=== PATIENT | male | born 1970 | race Caucasian/White ===

== ENCOUNTER 2017-12-03 09:34 | Inpatient (IN) | payer OTHER ==
[2017-12-03] MEDS ORDERED: ASPIRIN 81 MG PO STA (10:18)
--- NOTE | 2017-12-03 10:33 | ED ---
Chest Pain HPI - General Chief Complaint: Chest Pain Stated Complaint: CHEST PAIN Time Seen by Provider: 12/03/17 10:18 Source: patient, RN notes reviewed Mode of arrival: wheelchair Limitations: no limitations - History of Present Illness Initial Comments: This a 47-year-old male presents emergency Department with chief complaint of chest pain. He states that it started approximate one month ago while he was walking back from the store. He states that he has no chest pain at rest but states with any exertion he develops chest discomfort. Patient states that he also has some discomfort with deep inspiration. He does admit that he has a family history of heart disease and is a daily smoker at least one pack per day. Patient states she saw PCP yesterday in which they do some lab work and had chest x-ray with no acute findings. Patient states that the pain is getting worse and states that it is at minimal exertion when it starts. Patient has no history of [place], hyperlipidemia though last check was 3 years ago for labwork. - Related Data Home Medications Medication Instructions Recorded Confirmed Albuterol Inhaler [Ventolin Hfa 1 - 2 puff INHALATION RT-Q6H PRN 12/03/17 Inhaler] Fluticasone/Vilanterol [Breo 1 puff INHALATION RT-DAILY 12/03/17 12/03/17 Ellipta 100-25 Mcg Inhaler] Omeprazole [PriLOSEC] 40 mg PO DAILY 12/03/17 12/03/17 Tamsulosin HCl [Flomax] 0.4 mg PO DAILY 12/03/17 12/03/17 Allergies Allergy/AdvReac Type Severity Reaction Status Date / Time No Known Allergies Allergy Verified 12/03/17 10:13 Review of Systems ROS Statement: Those systems with pertinent positive or pertinent negative responses have been documented in the HPI. ROS Other: All systems not noted in ROS Statement are negative. EKG Findings - EKG Comments: EKG Findings:: EKG performed at 10:36 normal sinus rhythm with a rate of 68 MT 118 QRS 86 QTC is QTC 378/40 to there is an inverted T-wave noted in aVL. Please EKG performed at 12:32 normal sinus rhythm with rate of 74 MT 128 QRS 84 QT/QTC 392/435 Past Medical History Past Medical History: No Reported History History of Any Multi-Drug Resistant Organisms: None Reported Past Surgical History: Cholecystectomy Additional Past Surgical History / Comment(s): plates in left collar bone Past Psychological History: No Psychological Hx Reported Smoking Status: Current every day smoker Past Alcohol Use History: Occasional Past Drug Use History: Marijuana General Exam Limitations: no limitations General appearance: alert, in no apparent distress Head exam: Present: atraumatic, normocephalic, normal inspection Eye exam: Present: normal appearance, PERRL, EOMI. Absent: scleral icterus, conjunctival injection, periorbital swelling ENT exam: Present: normal exam, mucous membranes moist Neck exam: Present: normal inspection, full ROM. Absent: tenderness, meningismus, lymphadenopathy Respiratory exam: Present: normal lung sounds bilaterally. Absent: respiratory distress, wheezes, rales, rhonchi, stridor, chest wall tenderness Cardiovascular Exam: Present: regular rate, normal rhythm, normal heart sounds. Absent: systolic murmur, diastolic murmur, rubs, gallop, clicks Neurological exam: Present: alert, oriented X3, CN II-XII intact Skin exam: Present: warm, dry, intact, normal color. Absent: rash Course Vital Signs 12/03/17 12/03/17 12/03/17 09:46 10:57 11:30 Temperature 98.2 F Pulse Rate 91 79 72 Respiratory 20 18 161 H Rate Blood Pressure 133/92 142/92 156/91 O2 Sat by Pulse 100 100 99 Oximetry 12/03/17 12:26 Temperature Pulse Rate 66 Respiratory 16 Rate Blood Pressure 140/89 O2 Sat by Pulse 98 Oximetry Disposition Clinical Impression: Chest pain Disposition: ADMITTED IP TO THIS HOSP Condition: Stable Referrals: Keyla Costello DO [Primary Care Provider] - 1-2 days
[2017-12-03 11:10] LABS: Basophils % (A) 1 %; Eosinophils # (A) 0.1 k/uL (0-0.7); Eosinophils % (A) 2 %; HCT 40.2 % (39.0-53.0); HGB 13.5 gm/dL (13.0-17.5); Lymphocytes # (A) 2.4 k/uL (1.0-4.8); Lymphocytes % (A) 36 %; MCH 29.3 pg (25.0-35.0); MCHC 33.7 g/dL (31.0-37.0); Mean Platelet Volume 6.1; Monocytes # (A) 0.3 k/uL (0-1.0); Monocytes % (A) 4 %; Neutrophils # (A) 3.7 k/uL (1.3-7.7); Neutrophils % (A) 55 %; Platelet Count 275 k/uL (150-450); RBC 4.63 m/uL (4.30-5.90); RDW 14.2 % (11.5-15.5); WBC 6.6 k/uL (3.8-10.6)
--- NOTE | 2017-12-03 11:26 | XR ---
EXAMINATION TYPE: XR chest 2V DATE OF EXAM: 12/03/2017 COMPARISON: NONE TECHNIQUE: PA and lateral views submitted. HISTORY: Chest pain FINDINGS: The lungs are clear and there is no pneumothorax, pleural effusion, or focal pneumonia. Postsurgica l change left clavicle. Some of the screws appear to be outside of the fixation plate. Appears metall ic foreign body overlying the right shoulder. Hyperinflation suggests COPD. Lateral view suggest prob able calcified granuloma. IMPRESSION: 1. No acute process.
[2017-12-03 11:27] LABS: ALT 34 U/L (21-72); AST 29 U/L (17-59); Albumin 4.1 g/dL (3.5-5.0); Alkaline Phosphatase 112 U/L (38-126); Anion Gap 7 mmol/L; Blood Urea Nitrogen 12 mg/dL (9-20); Calcium 9.5 mg/dL (8.4-10.2); Carbon Dioxide 22 mmol/L (22-30); Chloride 111 mmol/L (98-107); Glucose 106 mg/dL (74-99); Magnesium 1.8 mg/dL (1.6-2.3); Potassium 4.3 mmol/L (3.5-5.1); Sodium 140 mmol/L (137-145); Total Bilirubin 0.3 mg/dL (0.2-1.3); Total Protein 6.6 g/dL (6.3-8.2)
[2017-12-03 11:42] LABS: Creatine Kinase 225 U/L (55-170)
[2017-12-03 11:50] LABS: D-Dimer 0.19 mg/L FEU (<0.60); Partial Thromboplastin Time 24.9 sec (22.0-30.0); Prothrombin Time 9.5 sec (9.0-12.0)
[2017-12-03 11:55] LABS: Creatine Kinase MB 1.2 ng/mL (0.0-2.4); Troponin I <0.012 ng/mL (0.000-0.034)
[2017-12-03] MEDS ORDERED: NITROGLYCERIN SL TABS 0.4 MG TAB SUBLINGUAL PRN (12:41)
[2017-12-03] MEDS ORDERED: HEPARIN SODIUM,PORCINE 5,000 UNIT/ML 1 ML VIAL IV ONE (12:41)
[2017-12-03] MEDS ORDERED: HEPARIN SOD,PORK IN 0.45% NACL 25,000 UNIT in 0.45% NACL 1 500ML.BAG IV SCH (12:45)
[2017-12-03] MEDS ORDERED: ALBUTEROL NEBULIZED 2.5 MG/3 ML INHALATION PRN (14:18)
[2017-12-03] MEDS ORDERED: NICOTINE 21MG/24HR PATCH TRANSDERM SCH (14:30)
--- NOTE | 2017-12-03 14:30 | P.HPIM ---
<Tracy Guidry - Last Filed: 12/03/17 14:22> History of Present Illness H&P Date: 12/03/17 Chief Complaint: Chest pain This is a 47-year-old male with a known history of nicotine dependence, GERD, COPD and BPH. He presents to the emergency room with complaints of chest pain. Patient reports she's been having these chest pain episodes intermittently with activity for the past month. He describes the chest pain as a burning sensation in the center of his chest. 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 He does occasionally feel lightheaded. Denies any actual nausea or vomiting with the chest pain. But in the morning he reports that he has had an upset stomach. The pain does not radiate into the arm or the neck. He denies any shortness of breath. Denies any diaphoresis. Denies any fever or chills or cough. Denies any bowel movement changes or urinary symptoms. He had been to see his PCP and they're planning to do a stress test later in December. Patient also is a smoker and he is still smoking and wearing the nicotine patch at the same time. Initial troponin was negative. EKG showing a normal sinus rhythm. Chest x-ray negative. D-dimer normal at 0.19. Patient has been admitted to the observation floor cardiology has been consulted and he has been started on IV heparin. Review of Systems Please refer to HPI otherwise unremarkable Past Medical History Past Medical History: No Reported History Additional Past Medical History / Comment(s): ADD, COPD, BPH, nicotine dependence, GERD History of Any Multi-Drug Resistant Organisms: None Reported Past Surgical History: Cholecystectomy Additional Past Surgical History / Comment(s): plates in left collar bone Past Psychological History: No Psychological Hx Reported Smoking Status: Current every day smoker Past Alcohol Use History: Occasional Past Drug Use History: Marijuana Medications and Allergies Home Medications Medication Instructions Recorded Confirmed Type Albuterol Inhaler [Ventolin Hfa 1 - 2 puff INHALATION RT-Q6H PRN 12/03/17 History Inhaler] Fluticasone/Vilanterol [Breo 1 puff INHALATION RT-DAILY 12/03/17 12/03/17 History Ellipta 100-25 Mcg Inhaler] Omeprazole [PriLOSEC] 40 mg PO DAILY 12/03/17 12/03/17 History Tamsulosin HCl [Flomax] 0.4 mg PO DAILY 12/03/17 12/03/17 History Allergies Allergy/AdvReac Type Severity Reaction Status Date / Time No Known Allergies Allergy Verified 12/03/17 10:13 Physical Exam Vitals: Vital Signs Temp Pulse Pulse Resp BP BP Pulse Ox 12/03/17 13:25 98.1 F 69 18 148/110 12/03/17 12:26 66 16 140/89 98 12/03/17 11:30 72 16 156/91 99 12/03/17 10:57 79 18 142/92 100 12/03/17 09:46 98.2 F 91 20 133/92 100 Intake and Output 12/02/17 12/03/17 12/03/17 22:59 06:59 14:59 Other: Weight 61.235 kg Head normocephalic Neck supple Lungs clear to auscultation bilaterally no wheezing or crackles Heart regular rate and rhythm S1-S2, no rub or gallop Abdomen is soft mild epigastric tenderness with palpation nondistended positive bowel sounds no hepatosplenomegaly Extremities no edema Neuro alert and orientated to 3 Results CBC & Chem 7: 12/03/17 10:50 12/03/17 10:50 Labs: Abnormal Lab Results - Last 24 Hours (Table) 12/03/17 12/03/17 Range/Units 10:50 10:50 Chloride 111 H (98-107) mmol/L Glucose 106 H (74-99) mg/dL Total Creatine Kinase 225 H (55-170) U/L Assessment and Plan Assessment: 1. Chest pain: First troponin is negative. Follow-up and serial cardiac enzymes. EKG normal sinus rhythm. Chest x-ray negative. D-dimer 0.19. Cardiology consulted. Continue IV heparin. Cardiology has ordered echo and possible stress test in the morning 2. Essential Hypertension: Cardiology to address blood pressure medication 3. Nicotine dependence: Discussed smoking cessation for greater than 3 minutes. Add nicotine patch. Patient also educated that he should not smoke while on the nicotine patch 4. History of ADD and required medication as a child 5. GERD: Continue omeprazole. Patient never had EGD 6. Dyspepsia: Check amylase and lipase. LFTs normal. 7. BPH continue Flomax 8. COPD: Stable resume home inhalers GI prophylaxis omeprazole and DVT prophylaxis IV heparin Time with Patient: Greater than 30 (Greater than 60% of the total time spent in counseling and coordination of care.I performed an examination of the patient and discussed their management with the physician Waxer Operator. I have reviewed the Physician Waxer Operator's notes and agree with the documented findings and plan of care) <Jo Ann Cuenca A - Last Filed: 12/03/17 15:44> Physical Exam Osteopathic Statement: *. No significant issues noted on an osteopathic structural exam other than those noted in the History and Physical/Consult. Vitals: Vital Signs Temp Pulse Pulse Resp BP BP Pulse Ox 12/03/17 15:00 18 12/03/17 13:25 98.1 F 69 18 148/110 12/03/17 12:26 66 16 140/89 98 12/03/17 11:30 72 16 156/91 99 12/03/17 10:57 79 18 142/92 100 12/03/17 09:46 98.2 F 91 20 133/92 100 Intake and Output 12/03/17 12/03/17 12/03/17 06:59 14:59 22:59 Other: Weight 61.235 kg Results CBC & Chem 7: 12/03/17 10:50 12/03/17 10:50 Labs: Abnormal Lab Results - Last 24 Hours (Table) 12/03/17 12/03/17 Range/Units 10:50 10:50 Chloride 111 H (98-107) mmol/L Glucose 106 H (74-99) mg/dL Total Creatine Kinase 225 H (55-170) U/L Assessment and Plan Assessment: Patient seen and examined. Patient complaining of chills and rigors. The patient did have a temperature of 100F on admission. He is known to Dr. Giron for infectious disease. Continue Levaquin and vancomycin per Infectious disease. Fecal occult blood and iron studies are pending due to anemia. Will start gentle IV fluid hydration. Cultures are pending. ~Jo Ann Cuenca DO
[2017-12-03 14:35] VITALS: BMI 23.9
--- NOTE | 2017-12-03 14:45 | P.CRDCN ---
History of Present Illness History of present illness: Mr. Hill is a pleasant 47-year-old male past medical history significant for COPD, BPH, gastroesophageal reflux disease and chronic nicotine dependence. He denies history of coronary artery disease and has never seen a quenching car operator for any reason. He is seen in consultation for symptoms of chest pain. He describes the pain as an intense burning sensation in the midsternal region associated with activity at work. These symptoms have been ongoing and intermittent for the previous month and a half. He states while he is doing activities such as raking or chopping logs or using a chainsaw was when the pain comes on. The pain is so intense that it drops into his knees and is associated with very mild shortness of breath and sometimes he feels lightheaded but not with every episode. He denies associated palpitations, diaphoresis, nausea or vomiting. He denies radiation to the arm, back, neck or jaw. When it comes it lasts for approximately 2 minutes and subsides with rest. EKG reveals sinus mechanism with LVH criteria, no acute ST or T-wave abnormalities noted. Chest x-ray is negative for an acute cardiopulmonary process. Laboratory data reviewed, hemoglobin 13.5, platelets 275, d-dimer 0.19, sodium 140, potassium 4.3, magnesium 1.8, creatinine 0.66, cardiac enzymes negative 1 , proBNP 44. He takes no daily cardiac medications. Review of Systems At the time of my exam: CONSTITUTIONAL: Denies fever. Denies chills. EYES: Denies blurred vision. Denies vision changes. Denies eye pain. EARS, NOSE, MOUTH & THROAT: Denies headache. Denies sore throat. Denies ear pain. CARDIOVASCULAR: Denies chest pain. Denies shortness of breath. Denies orthopnea. Denies PND. Denies palpitations. RESPIRATORY: Denies cough. GASTROINTESTINAL: Denies abdominal pain. Denies diarrhea. Denies constipation. Denies nausea. Denies vomiting. MUSCULOSKELETAL: Denies myalgias. INTEGUMENTARY: Denies pruitis. Denies rash. NEUROLOGIC: Denies numbness. Denies tingling. Denies weakness. PSYCHIATRIC: Denies anxiety. Denies depression. ENDOCRINE: Denies fatigue. Denies weight change. Denies polydipsia. Denies polyurina. GENITOURINARY: Denies burning, hematuria or urgency with micturation. HEMATOLOGIC: Denies history of anemia. Denies bleeding. Past Medical History Past Medical History: No Reported History Additional Past Medical History / Comment(s): ADD, COPD, BPH, nicotine dependence, GERD History of Any Multi-Drug Resistant Organisms: None Reported Past Surgical History: Cholecystectomy Additional Past Surgical History / Comment(s): plates in left collar bone Past Psychological History: No Psychological Hx Reported Smoking Status: Current every day smoker Past Alcohol Use History: Occasional Past Drug Use History: Marijuana Medications and Allergies Home Medications Medication Instructions Recorded Confirmed Type Albuterol Inhaler [Ventolin Hfa 1 - 2 puff INHALATION RT-Q6H PRN 12/03/17 History Inhaler] Fluticasone/Vilanterol [Breo 1 puff INHALATION RT-DAILY 12/03/17 12/03/17 History Ellipta 100-25 Mcg Inhaler] Omeprazole [PriLOSEC] 40 mg PO DAILY 12/03/17 12/03/17 History Tamsulosin HCl [Flomax] 0.4 mg PO DAILY 12/03/17 12/03/17 History Allergies Allergy/AdvReac Type Severity Reaction Status Date / Time No Known Allergies Allergy Verified 12/03/17 10:13 Physical Exam Vitals: Vital Signs Temp Pulse Pulse Resp BP BP Pulse Ox 12/03/17 13:25 98.1 F 69 18 148/110 12/03/17 12:26 66 16 140/89 98 12/03/17 11:30 72 16 156/91 99 12/03/17 10:57 79 18 142/92 100 12/03/17 09:46 98.2 F 91 20 133/92 100 Intake and Output 12/02/17 12/03/17 12/03/17 22:59 06:59 14:59 Other: Weight 61.235 kg Blood pressure 148/110 heart rate 69 afebrile maintaining oxygen saturation on room air GENERAL: This is a 47-year-old male in no apparent distress at the time of my examination. HEENT: Head is atraumatic, normocephalic. Pupils are equal, round. Sclerae anicteric. Conjunctivae are clear. Mucous membranes of the mouth are moist. Neck is supple. There is no jugular venous distention. No carotid bruit is heard. LUNGS: Clear to auscultation no wheezes, rales or rhonchi. No chest wall tenderness is noted on palpation or with deep breathing. HEART: Regular rate and rhythm without murmurs, rubs or gallops. S1 and S2 heard. ABDOMEN: Soft, nontender. Bowel sounds are heard. No organomegaly noted. EXTREMITIES: No evidence of peripheral edema and no calf tenderness noted. VASCULAR: Radial and dorsalis pedis pulses palpated, no evidence of clubbing. NEUROLOGIC: Patient is awake, alert and oriented x3. Results 12/03/17 10:50 12/03/17 10:50 Cardiac Enzymes 12/03/17 12/03/17 Range/Units 10:50 10:50 AST 29 (17-59) U/L CK-MB (CK-2) 1.2 (0.0-2.4) ng/mL Troponin I <0.012 (0.000-0.034) ng/mL Coagulation 12/03/17 Range/Units 10:50 PT 9.5 (9.0-12.0) sec APTT 24.9 (22.0-30.0) sec CBC 12/03/17 Range/Units 10:50 WBC 6.6 (3.8-10.6) k/uL RBC 4.63 (4.30-5.90) m/uL Hgb 13.5 (13.0-17.5) gm/dL Hct 40.2 (39.0-53.0) % Plt Count 275 (150-450) k/uL Comprehensive Metabolic Panel 12/03/17 Range/Units 10:50 Sodium 140 (137-145) mmol/L Potassium 4.3 (3.5-5.1) mmol/L Chloride 111 H (98-107) mmol/L Carbon Dioxide 22 (22-30) mmol/L BUN 12 (9-20) mg/dL Creatinine 0.66 (0.66-1.25) mg/dL Glucose 106 H (74-99) mg/dL Calcium 9.5 (8.4-10.2) mg/dL AST 29 (17-59) U/L ALT 34 (21-72) U/L Alkaline Phosphatase 112 (38-126) U/L Total Protein 6.6 (6.3-8.2) g/dL Albumin 4.1 (3.5-5.0) g/dL Current Medications Generic Name Dose Route Start Last Admin Trade Name Freq PRN Reason Stop Dose Admin Albuterol Sulfate 2.5 mg 12/03/17 14:18 Ventolin Nebulized INHALATION RT-Q6H PRN Shortness Of Breath Aspirin 325 mg 12/04/17 09:00 Aspirin PO DAILY JUDITH Budesonide/Formoterol Fumarate 2 puff 12/04/17 08:00 Symbicort 80-4.5 Mcg Inhaler INHALATION RT-BID JUDITH Heparin Sodium/Sodium Chloride 500 mls @ 14.69 mls/hr 12/03/17 12:45 13:01 25,000 unit/ Sodium Chloride IV 12 units/kg/hr .Q24H JUDITH 14.69 mls/hr Administration Protocol 12 UNITS/KG/HR Nicotine 1 patch 12/03/17 14:30 Habitrol 21mg/24hr Patch TRANSDERM DAILY JUDITH Nitroglycerin 0.4 mg 12/03/17 12:41 Nitrostat SUBLINGUAL Q5M PRN Chest Pain Pantoprazole Sodium 40 mg 12/04/17 07:30 Protonix PO AC-BRKFST JUDITH Tamsulosin HCl 0.4 mg 12/04/17 09:00 Flomax PO DAILY JUDITH Intake and Output 12/02/17 12/03/17 12/03/17 22:59 06:59 14:59 Other: Weight 61.235 kg Patient Weight 12/04/17 06:59 Weight 61.235 kg 12/03/17 10:50 12/03/17 10:50 Assessment and Plan Assessment: ASSESSMENT Precordial chest pain. Hypertension COPD Gastroesophageal reflux disease Chronic nicotine dependence PLAN Obtain 2D echocardiogram and doppler study to assess cardiac structure and function. Continue to obtain serial cardiac enzymes to rule out an acute coronary event. If enzymes are negative heparin infusion can be discontinued and we will consider stress testing in the morning, if abnormal we will consider coronary angiography. NPO after midnight tonight. Add amlodipine to daily regimen for blood pressure control. Further recommendations to follow based on clinical course. Thank you kindly for this consultation. The above impression and plan of care have been discussed and directed by the signing physician. Susanna Mcgraw, nurse practitioner, acting as scribe for signing physician.
[2017-12-03 14:46] LABS: Amylase 63 U/L (30-110); Lipase 76 U/L (23-300)
[2017-12-03] MEDS: amLODIPine 5 MG TAB PO SCH (15:22)
[2017-12-03 18:45] LABS: Creatine Kinase 206 U/L (55-170)
[2017-12-03 18:57] LABS: Troponin I <0.012 ng/mL (0.000-0.034)
[2017-12-03] MEDS: ALPRAZolam 0.25 MG TAB PO PRN (20:06)
[2017-12-03 22:38] LABS: Creatine Kinase 174 U/L (55-170)
[2017-12-03 22:51] LABS: Troponin I <0.012 ng/mL (0.000-0.034)
[2017-12-04 02:55] LABS: Basophils % (A) 1 %; Eosinophils # (A) 0.2 k/uL (0-0.7); Eosinophils % (A) 3 %; HCT 41.3 % (39.0-53.0); HGB 13.7 gm/dL (13.0-17.5); Lymphocytes % (A) 49 %; MCH 28.8 pg (25.0-35.0); MCHC 33.2 g/dL (31.0-37.0); MCV 86.8 fL (80.0-100.0); Mean Platelet Volume 6.4; Monocytes # (A) 0.3 k/uL (0-1.0); Monocytes % (A) 4 %; Neutrophils # (A) 2.5 k/uL (1.3-7.7); Neutrophils % (A) 41 %; Platelet Count 251 k/uL (150-450); RBC 4.75 m/uL (4.30-5.90); RDW 13.9 % (11.5-15.5); WBC 6.1 k/uL (3.8-10.6)
[2017-12-04] MEDS: ALPRAZolam 0.25 MG TAB PO PRN ×2 (02:55→14:15)
[2017-12-04 03:04] LABS: ALT 32 U/L (21-72); AST 27 U/L (17-59); Albumin 3.7 g/dL (3.5-5.0); Alkaline Phosphatase 86 U/L (38-126); Anion Gap 6 mmol/L; Blood Urea Nitrogen 12 mg/dL (9-20); Calcium 9.2 mg/dL (8.4-10.2); Carbon Dioxide 26 mmol/L (22-30); Chloride 107 mmol/L (98-107); Cholesterol 235 mg/dL (<200); Glucose 101 mg/dL (74-99); HDL Cholesterol 59 mg/dL (40-60); LDL Cholesterol,Calculated 136 mg/dL (0-99); Potassium 3.8 mmol/L (3.5-5.1); Sodium 139 mmol/L (137-145); Total Bilirubin 0.2 mg/dL (0.2-1.3); Total Protein 6.1 g/dL (6.3-8.2); Triglycerides 198 mg/dL (<150)
[2017-12-04] MEDS ORDERED: PANTOPRAZOLE 40 MG TABLET PO SCH (07:30)
[2017-12-04] MEDS ORDERED: SYMBICORT 80-4.5 MCG INHALER INHALATION SCH (08:00)
--- NOTE | 2017-12-04 08:38 | ECHOF ---
Referral Reason:chest pain MEASUREMENTS -------- HEIGHT: 185.4 cm WEIGHT: 61.2 kg BP: 140/89 IVSd: 0.9 cm (0.6 - 1.1) LVIDd: 4.6 cm (3.9 - 5.3) LVPWd: 0.9 cm (0.6 - 1.1) IVSs: 1.3 cm LVIDs: 2.0 cm LVPWs: 1.7 cm Ao Diam: 3.1 cm (2.0 - 3.7) AV Cusp: 1.6 cm (1.5 - 2.6) LA Diam: 3.0 cm (2.7 - 3.8) MV EXCURSION: 17.701 mm (> 18.000) MV EF SLOPE: 156 mm/s (70 - 150) EPSS: 2.3 cm MV E Bill: 0.97 m/s MV DecT: 199 ms MV A Bill: 0.66 m/s MV E/A Ratio: 1.47 RAP: 5.00 mmHg RVSP: 11.68 mmHg FINDINGS -------- Sinus rhythm. This was a technically good study. The left ventricular size is normal. Left ventricular wall thickness is normal. Overall left vent ricular systolic function is normal with, an EF between 55 - 60 %. The right ventricle is normal in size and function. The left atrium is normal in size. The right atrium is normal in size. The aortic valve is trileaflet and appears structurally normal. There is trace mitral regurgitation. Trace tricuspid regurgitation present. The right ventricular systolic pressure, as measured by Dopp ler, is 11.68mmHg. Pulmonic valve appears structurally normal. The aortic root size is normal. Normal inferior vena cava with normal inspiratory collapse consistent with estimated right atrial pre ssure of 5 mmHg. There is a trivial pericardial effusion present. CONCLUSIONS -------- 1. Sinus rhythm. 2. This was a technically good study. 3. The left ventricular size is normal. 4. Left ventricular wall thickness is normal. 5. Overall left ventricular systolic function is normal with, an EF between 55 - 60 %. 6. The right ventricle is normal in size and function. 7. The left atrium is normal in size. 8. The right atrium is normal in size. 9. The aortic valve is trileaflet and appears structurally normal. 10. There is trace mitral regurgitation. 11. Trace tricuspid regurgitation present. 12. The right ventricular systolic pressure, as measured by Doppler, is 11.68mmHg. 13. Pulmonic valve appears structurally normal. 14. The aortic root size is normal. 15. Normal inferior vena cava with normal inspiratory collapse consistent with estimated right atrial pressure of 5 mmHg. 16. There is a trivial pericardial effusion present. FINISHING TRIMMER: Traa Silva RDCS
[2017-12-04 08:45] VITALS: BP 138/96; PULSE 83; TEMP 98
[2017-12-04] MEDS ORDERED: ASPIRIN 81 MG PO SCH (09:00)
[2017-12-04] MEDS ORDERED: TAMSULOSIN 0.4 MG CAP.ER.24H PO SCH (09:00)
[2017-12-04] MEDS ORDERED: ASPIRIN 325 MG TAB PO SCH (09:00)
--- NOTE | 2017-12-04 10:20 | P.PN ---
Subjective Mr. Hill seen and examined resting comfortably in bed. He has had no further symptoms of chest discomfort. Denies shortness of breath, nausea, vomiting, dizziness or palpitations. Cardiac enzymes negative 3, LDL 136. Echocardiogram obtained reveals preserved left ventricular systolic function. Blood pressure 138/96 heart rate 83 afebrile maintaining oxygen saturation on room air. Objective - Vital Signs Vital signs: Vital Signs Temp 98 F 12/04/17 08:00 Pulse 83 12/04/17 08:00 Resp 16 12/04/17 08:00 BP 138/96 12/04/17 08:00 Pulse Ox 99 12/04/17 08:00 Intake & Output 12/03/17 12/04/17 12/04/17 18:59 06:59 18:59 Intake Total 940 269.276 Balance 940 269.276 Weight 61.235 kg Intake: Intake, IV Titration 269.276 Amount Heparin Sod,Pork in 0.45% 269.276 NaCl 25,000 unit In 0.45 % NaCl 1 500ml.bag @ 12 UNITS/KG/HR 14.69 mls/hr IV .Q24H JUDITH Rx#: [id number] Oral 840 Other 100 Other: Voiding Method Toilet Toilet # Voids 1 3 - Exam GENERAL: Well-appearing, well-nourished and in no acute distress. NECK: Supple without JVD or thyromegaly. LUNGS: Breath sounds clear to auscultation bilaterally. Respiration equal and unlabored. No wheezes, rales or rhonchi. HEART: Regular rate and rhythm without murmurs, rubs or gallops. S1 and S2 heard. EXTREMITIES: Normal range of motion, no edema. No clubbing or cyanosis. Peripheral pulses intact. - Labs CBC & Chem 7: 12/04/17 02:41 12/04/17 02:41 Labs: Abnormal Lab Results - Last 24 Hours (Table) 12/03/17 12/03/17 12/03/17 Range/Units 10:50 10:50 18:14 APTT (22.0-30.0) sec Chloride 111 H (98-107) mmol/L Glucose 106 H (74-99) mg/dL Total Creatine Kinase 225 H 206 H (55-170) U/L Total Protein (6.3-8.2) g/dL Triglycerides (<150) mg/dL Cholesterol (<200) mg/dL LDL Cholesterol, Calc (0-99) mg/dL 12/03/17 12/03/17 12/04/17 Range/Units 18:14 22:08 02:41 APTT 31.3 H (22.0-30.0) sec Chloride (98-107) mmol/L Glucose 101 H (74-99) mg/dL Total Creatine Kinase 174 H (55-170) U/L Total Protein 6.1 L (6.3-8.2) g/dL Triglycerides 198 H (<150) mg/dL Cholesterol 235 H (<200) mg/dL LDL Cholesterol, Calc 136 H (0-99) mg/dL Assessment and Plan Assessment: ASSESSMENT Precordial chest pain. An acute coronary event has been ruled out. Hypertension COPD Gastroesophageal reflux disease Chronic nicotine dependence PLAN An acute coronary event has been ruled out. Discontinue IV heparin. Perform stress echocardiogram to assess her stress induced cardiac ischemia. If stress test is normal he is stable from a cardiac perspective. Follow-up with Dr. Galvan in 2 weeks. The above impression and plan of care have been discussed and directed by the signing physician. Susanna Mcgraw, nurse practitioner, acting as scribe for signing physician.
[2017-12-04] MEDS ORDERED: ATORVASTATIN 80 MG TAB PO STA (10:45)
[2017-12-04] MEDS ORDERED: ASPIRIN 325 MG TAB PO STA (10:45)
[2017-12-04] MEDS ORDERED: SODIUM CHLORIDE 0.9% 1,000 ML in EMPTY BAG 1 BAG IV ONE (10:45)
--- NOTE | 2017-12-04 10:51 | P.PN ---
Progress Note - Text Pt underwent stress echocardiogram. During exam he developed burning in the mid- sternal region while walking on the treadmill in stage 2. Echocardiogram images indicated abnormalities on stress compared to rest. Findings were explained to the patient in detail as well as to his over the phone. We recommend cardiac catheterization to further assess coronary arteries. I have discussed the risks, benefits and alternative therapies for the above-mentioned procedure and for both sedation/analgesia as well as necessary blood product administration, if indicated, as they pertain to this patient. The patient has indicated understanding and acceptance of the risks and procedures discussed. Questions have been answered appropriately and he is agreeable to move forward with the above stated procedure.
--- NOTE | 2017-12-04 10:59 | ECHOS ---
STRESS ECHOCARDIOGRAM MEDICATIONS: Flomax, omeprazole. BASELINE HEART RATE: 66 BASELINE BLOOD PRESSURE: 134/71 MAXIMUM HEART RATE: 156 MAXIMUM BLOOD PRESSURE: 173/96 85% MPHR: 148 100% MPHR: 174 METS: 11.0 MAXIMUM STAGE REACHED: 4 TOTAL EXERCISE TIME: 10:00 INDICATION: Chest pain. CLINICAL INFORMATION: Baseline EKG shows sinus rhythm, normal axis, normal intervals. Patient exercised on Rubio protocol for a total of 10 minutes achieving 11 METS, 90% of predicted maximum heart rate without chest pain or diagnostic ST-segment depression. Baseline echo shows normal left ventricular size wall motion, systolic function. Postexercise, there is exercise-induced wall motion abnormality involving the apex and the anteroseptum suggestive of stress-induced ischemia and this also involves mid- anterior wall. This is suggestive of a hemodynamically significant lesion in LAD distribution. CONCLUSION: 1. Good exercise tolerance. 2. Negative stress test by EKG criteria. 3. Abnormal stress echo. MMODL / IJN: [id number] /
[2017-12-04] MEDS ORDERED: IV FLUID CONTINUATION 980 ML IV ONE (11:15)
[2017-12-04] MEDS ORDERED: MIDAZOLAM 2 MG/2 ML VIAL IV ONE (11:30)
[2017-12-04] MEDS ORDERED: NITROGLYCERIN OINT 1 INCH/GM PACKET TOPICAL ONE (11:31)
[2017-12-04] MEDS ORDERED: fentaNYL (PF) 50 MCG/ML 2 ML AMP IV ONE (11:34)
[2017-12-04] MEDS ORDERED: BIVALIRUDIN BOLUS 250 MG/50 ML IV ONE (12:04)
[2017-12-04] MEDS ORDERED: BIVALIRUDIN 250 MG in SODIUM CHLORIDE 0.9% 40 ML IV ONE (12:05)
[2017-12-04] MEDS ORDERED: PRASUGREL 10 MG TAB PO ONE ×2 (12:07)
[2017-12-04] MEDS ORDERED: IOPAMIDOL-370 125ML BTL INJ ONE (12:19)
[2017-12-04] MEDS ORDERED: IOPAMIDOL-370 100ML BTL INJ ONE (12:19)
--- NOTE | 2017-12-04 12:26 | CC ---
CARDIAC CATHETERIZATION REPORT INDICATION: Chest pain with abnormal stress echo showing ischemia in LAD distribution. PROCEDURE NOTE: After obtaining informed consent, left heart catheterization, coronary angiogram were performed via the right femoral artery using standard Rosalind catheters. Patient tolerated the procedure well without any obvious immediate complications. Patient received moderate conscious sedation and total sedation time was 20 minutes. FINDINGS: 1. HEMODYNAMICS: Left ventricular end-diastolic pressure is 10 to 12 mm. There is no significant gradient across the aortic valve. 2. LEFT VENTRICULOGRAM: Left ventriculogram is not performed. 3. ANGIOGRAPHIC DATA: 4. LEFT MAIN CORONARY ARTERY: Left main coronary artery is a normal-sized vessel and is free of stenosis. Divides into left anterior descending coronary artery and circumflex coronary artery. LAD shows a focal area of 90% stenosis in the proximal part. Circumflex coronary artery is a large codominant vessel and is free of significant stenosis. There are extensive collaterals to the distal RCA from the circumflex coronary artery. Right coronary artery is chronically occluded in its midportion. CONCLUSION: A 90% focal stenosis in the left anterior descending artery, chronic total occlusion of the mid right coronary artery with extensive collaterals from the circumflex to the distal right coronary artery. PLAN: Patient will undergo angioplasty of the LAD. MMODL / IJN: [id number] /
[2017-12-04] MEDS ORDERED: ZOLPIDEM 5 MG TAB PO PRN (12:27)
[2017-12-04] MEDS ORDERED: RX INFO: IV CONTRAST WAS GIVEN 1 EACH MISC MISCELLANE PRN (12:27)
[2017-12-04] MEDS ORDERED: ATROPINE SULFATE 0.1 MG/ML 10ML SYRINGE IV PRN (12:27)
[2017-12-04] MEDS ORDERED: MAG HYDROX/AL HYDROX/SIMETH 30 ML CUP PO PRN (12:27)
[2017-12-04] MEDS ORDERED: NITROGLYCERIN SL TABS 0.4 MG TAB SUBLINGUAL PRN (12:27)
[2017-12-04] MEDS ORDERED: SODIUM CHLORIDE 0.9% 1,000 ML IV SCH (12:30)
[2017-12-04] MEDS ORDERED: ACETAMINOPHEN TAB 325 MG TAB PO STA (14:02)
--- NOTE | 2017-12-04 14:02 | PTCA ---
PERCUTANEOUSTRANS CORORONARY ANGIOGRAPHY Mr. Hill is a 47-year-old male with history of chronic tobacco use and a family history of premature coronary disease who presented with symptoms of chest discomfort, had a significantly abnormal stress echocardiogram, underwent cardiac catheterization by Dr. Galvan and was found to have a 95% stenosis in the proximal calcified LAD with chronically occluded right coronary artery with collateral from the left system. In view of that, recommendation was made regarding angioplasty and stenting. The procedures, risks and complications were discussed with the patient who is in full understanding and agreement. PROCEDURE: A 6-Syriac FR4 guiding catheter introduced into the system. After cannulating the left main a 0.014 balanced medium weight J-wire was advanced across the lesion and positioned distally. Then a 2.5 x 12 mm Trek balloon was advanced and one inflation at 14 atmospheres was done. Following that, the balloon was removed and a 3.0 x 50 mm Xience Alpine stent was deployed, postdilated at 14 atmospheres. After the last inflation, after appropriate wait, the balloon and the guidewire were withdrawn back in the guiding catheter. Images were obtained and repeated. Those images reveal stable successful stenting. At that point, the guiding catheter, the balloon and the guidewire were removed. The sheath was removed. Hemostasis was obtained with deployment of an Angio-Seal. There was no immediate complication. Patient is returned to his room in stable condition. Of note, the patient received oral loading dose of Effient and Angiomax per protocol. He had chest discomfort and EKG changes with the inflation that resolved at end of the procedure. RESULTS: Successful stenting of the proximal calcified LAD with reduction of stenosis from 95% to 0%. RECOMMENDATION: The patient will be continued on aspirin, Effient, beta david, and statin. The importance of dual antiplatelet treatment were discussed with the patient and his family who are in full understanding and agreement. DURATION OF THE PROCEDURE: 24 minutes. MMODL / IJN: [id number] /
[2017-12-04] MEDS ORDERED: ACETAMINOPHEN TAB 500 MG TAB PO STA (14:06)
[2017-12-04] MEDS: amLODIPine 5 MG TAB PO SCH (14:14)
--- NOTE | 2017-12-04 14:32 | P.PN ---
<Margarita White E - Last Filed: 12/04/17 14:15> Subjective Progress Note Date: 12/04/17 HPI: This is a 47-year-old male with a known history of nicotine dependence, GERD, COPD and BPH. He presents to the emergency room with complaints of chest pain. Patient reports she's been having these chest pain episodes intermittently with activity for the past month. He describes the chest pain as a burning sensation in the center of his chest. 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 He does occasionally feel lightheaded. Denies any actual nausea or vomiting with the chest pain. But in the morning he reports that he has had an upset stomach. The pain does not radiate into the arm or the neck. He denies any shortness of breath. Denies any diaphoresis. Denies any fever or chills or cough. Denies any bowel movement changes or urinary symptoms. He had been to see his PCP and they're planning to do a stress test later in December. Patient also is a smoker and he is still smoking and wearing the nicotine patch at the same time. Initial troponin was negative. EKG showing a normal sinus rhythm. Chest x-ray negative. D-dimer normal at 0.19. Patient has been admitted to the observation floor cardiology has been consulted and he has been started on IV heparin. Interval History: 12/04/17- patient is being seen examined and evaluated today in extended stay area post heart catheterizations. He did go for a stress echocardiogram this morning and did have positive findings therefore the patient went for heart catheterization. Per the nursing staff at bedside post cardiac cath he did receive stent of the proximal calcified LAD with reduction of stenosis from 95% to 0%. Patient was also noted to have a chronically occluded right coronary artery with collateral from the circumflex to the distal right coronary artery. The patient is hemodynamically status post cardiac catheterization. Will be sent to selective care unit. Objective - Vital Signs Vital signs: Vital Signs Temp 98 F 12/04/17 08:00 Pulse 83 12/04/17 08:00 Resp 16 12/04/17 08:00 BP 138/96 12/04/17 08:00 Pulse Ox 99 12/04/17 08:00 Intake & Output 08/06/2112/04/17 12/04/17 18:59 06:59 18:59 Intake Total 940 269.276 145.34 Balance 940 269.276 145.34 Weight 61.235 kg Intake: IV 145.34 Intake, IV Titration 269.276 Amount Heparin Sod,Pork in 0.45% 269.276 NaCl 25,000 unit In 0.45 % NaCl 1 500ml.bag @ 12 UNITS/KG/HR 14.69 mls/hr IV .Q24H [facility] Rx#: [id number] Oral 840 Other 100 Other: Voiding Method Toilet Toilet # Voids 1 3 - Exam Head normocephalic Neck supple Lungs clear to auscultation bilaterally no wheezing or crackles Heart regular rate and rhythm S1-S2, no rub or gallop Abdomen is soft mild epigastric tenderness with palpation nondistended positive bowel sounds no hepatosplenomegaly Extremities no edema Neuro alert and orientated to 3 - Labs CBC & Chem 7: 12/04/17 02:41 12/04/17 02:41 Labs: Abnormal Lab Results - Last 24 Hours (Table) 12/03/17 12/03/17 12/03/17 Range/Units 18:14 18:14 22:08 APTT 31.3 H (22.0-30.0) sec Glucose (74-99) mg/dL Total Creatine Kinase 206 H 174 H (55-170) U/L Total Protein (6.3-8.2) g/dL Triglycerides (<150) mg/dL Cholesterol (<200) mg/dL LDL Cholesterol, Calc (0-99) mg/dL 12/04/17 Range/Units 02:41 APTT (22.0-30.0) sec Glucose 101 H (74-99) mg/dL Total Creatine Kinase (55-170) U/L Total Protein 6.1 L (6.3-8.2) g/dL Triglycerides 198 H (<150) mg/dL Cholesterol 235 H (<200) mg/dL LDL Cholesterol, Calc 136 H (0-99) mg/dL Assessment and Plan Assessment: Assessment and Plan Assessment: 1. Chest pain: EKG normal sinus rhythm. Chest x-ray negative. D-dimer 0.19. Cardiology consulted. Cardiology sent the patient for a cardiac stress test this morning which was positive. The patient did go for heart catheterization and did receive stenting to the LAD. Patient was also noted to have a chronically occluded right coronary artery with collateral from the circumflex to the distal right coronary artery. Patient going to selective care unit from [facility] [facility] 2. Essential Hypertension: Cardiology to address blood pressure medication 3. Nicotine dependence: Discussed smoking cessation for greater than 3 minutes. Add nicotine patch. Patient also educated that he should not smoke while on the nicotine patch 4. History of ADD and required medication as a child 5. GERD: Continue omeprazole. Patient never had EGD 6. Dyspepsia: amylase and lipase within normal limits. LFTs normal. 7. BPH continue Flomax 8. COPD: Stable resume home inhalers 9. Hyperlipidemia: Started on Lipitor 10. Coronary artery disease status post heart catheterization: Patient on Effient, Lipitor, aspirin, and beta david GI prophylaxis omeprazole and DVT prophylaxis IV heparin I performed an examination of the patient and discussed their management with the nurse practitioner. I have reviewed the nurse practitioner's note and agree with the documented findings and plan of care. <Jo Ann Cuenca - Last Filed: 12/04/17 14:53> Objective - Vital Signs Vital signs: Vital Signs Temp 98 F 12/04/17 08:00 Pulse 83 12/04/17 08:00 Resp 16 12/04/17 08:00 BP 138/96 12/04/17 08:00 Pulse Ox 99 12/04/17 08:00 Intake & Output 12/03/17 12/04/17 12/04/17 18:59 06:59 18:59 Intake Total 940 269.276 145.34 Balance 940 269.276 145.34 Weight 61.235 kg Intake: IV 145.34 Intake, IV Titration 269.276 Amount Heparin Sod,Pork in 0.45% 269.276 NaCl 25,000 unit In 0.45 % NaCl 1 500ml.bag @ 12 UNITS/KG/HR 14.69 mls/hr IV .Q24H [facility] Rx#: [id number] Oral 840 Other 100 Other: Voiding Method Toilet Toilet # Voids 1 3 - Labs CBC & Chem 7: 12/04/17 02:41 12/04/17 02:41 Labs: Abnormal Lab Results - Last 24 Hours (Table) 12/03/17 12/03/17 12/03/17 Range/Units 18:14 18:14 22:08 APTT 31.3 H (22.0-30.0) sec Glucose (74-99) mg/dL Total Creatine Kinase 206 H 174 H (55-170) U/L Total Protein (6.3-8.2) g/dL Triglycerides (<150) mg/dL Cholesterol (<200) mg/dL LDL Cholesterol, Calc (0-99) mg/dL 12/04/17 Range/Units 02:41 APTT (22.0-30.0) sec Glucose 101 H (74-99) mg/dL Total Creatine Kinase (55-170) U/L Total Protein 6.1 L (6.3-8.2) g/dL Triglycerides 198 H (<150) mg/dL Cholesterol 235 H (<200) mg/dL LDL Cholesterol, Calc 136 H (0-99) mg/dL Assessment and Plan Assessment: Patient seen and examined post left heart catheterization. The patient states that he would like some Xanax. He is complaining of back pain which appears to be chronic. The patient did receive a stent to the LAD. He also has a chronically occluded RCA. The patient is hemodynamically stable. He is currently on room air. He will be transferred to [facility] (formerly [facility] ~Jo Ann Cuenca DO
[2017-12-04 18:26] VITALS: RESP 20
[2017-12-04] MEDS ORDERED: ATORVASTATIN 80 MG TAB PO SCH (21:00)
[2017-12-04] MEDS ORDERED: HEPARIN SODIUM,PORCINE 5,000 UNIT/ML 1 ML VIAL SQ SCH (21:00)
[2017-12-04] MEDS ORDERED: METOPROLOL TARTRATE 25 MG TAB PO SCH (21:00)
[2017-12-05] MEDS ORDERED: PRASUGREL 10 MG TAB PO SCH (12:00)
--- NOTE | 2017-12-08 08:02 | CDI ---
Last Revision, April 2017 Documentation Clarification Form Date: 12/08/17 From: Kirsten Rocha Phone: If you have a question regarding this query, please contact Naomi Wick at [phone] between 8am and 5pm. Admit Date: 12/04/2017 2:28:00 PM Patient Name: Jonathan Hill Visit Number: [id number] Discharge Date: 12/04/17 ATTENTION: The Clinical Documentation Specialists (CDI) and [facility] Coding Staff appreciate your assistance in clarifying documentation. Please respond to the clarification below the line at the bottom and electronically sign. The CDI & [facility] Coding staff will review the response and follow-up if needed. Please note: Queries are made part of the Legal Health Record. If you have any questions, please contact the author of this message via ITS. Shantanu Jones MD Patient presented to the emergency room with complaints of chest pain. Patient history/risk factors: Patient has a history of hyperlipidemia, hypertension and smoking. Clinical Indicators: Severe burning chest pain that took him to his knees. Lab findings: Troponin levels x 3 were 0.012 Vital Signs: T. 98.2, P. 91, R. 20, BP 133/92 Other Clinical Indicators: Patient was found to have total chronic occlusion of the mid right coronary artery with extensive collaterals from the circumflex to the distal right coronary artery. Treatment: Patient had a PTCA with 1 stent placed in the proximal calcified LAD with reduction of stenosis from 95% to 0%. In your professional opinion, can you please clarify the type of chest pain? Chest pain unspecified Unstable angina Other, please specify Unable to determine Unstable angina MTDD
== END 2017-12-04 17:15 | disposition left against medical advice (07) | DRG 247 ==
LOC: SUPCPDRO 09:34 → EC 09:34 → INTOOBSV 12:57 → 3OBS 12:57 → OBSVTOIN 12-04 14:28 → 6SEL 12-04 15:58
PROVIDERS: ADMIT Internal Medicine; ATTEND Internal Medicine
PROC: B2111ZZ Fluoroscopy of Multiple Coronary Arteries using Low Osmolar Contrast (ICD-10-PCS; 2017-12-04)
PROC: 027034Z Dilation of Coronary Artery, One Artery with Drug-eluting Intraluminal Device, Percutaneous Approach (ICD-10-PCS; principal; 2017-12-04 11:15)
PROC: 4A023N7 Measurement of Cardiac Sampling and Pressure, Left Heart, Percutaneous Approach (ICD-10-PCS; 2017-12-04 11:15)
DX: I25.110 Atherosclerotic heart disease of native coronary artery with unstable angina pectoris (principal); D64.9 Anemia, unspecified; E78.5 Hyperlipidemia, unspecified; F17.210 Nicotine dependence, cigarettes, uncomplicated; I10 Essential (primary) hypertension; J44.9 Chronic obstructive pulmonary disease, unspecified; K21.9 Gastro-esophageal reflux disease without esophagitis; N40.0 Benign prostatic hyperplasia without lower urinary tract symptoms; K30 Functional dyspepsia; M54.9 Dorsalgia, unspecified; G89.29 Other chronic pain; I25.82 Chronic total occlusion of coronary artery; Z79.899 Other long term (current) drug therapy; Z90.49 Acquired absence of other specified parts of digestive tract; Z82.49 Family history of ischemic heart disease and other diseases of the circulatory system
CPT/HCPCS: 36415; 71046; 80053; 80061; 82150; 82550; 82553; 83690; 83735; 83880; 84484; 85025; 85379; 85610; 85730; 93005; 93306; 93351; 93458; 94640; 96374; 99285